=== PATIENT | male | born 1935 | race Caucasian/White ===

== ENCOUNTER 2017-01-28 03:37 | Emergency (ER) | payer MEDICARE, BC ==
[2017-01-28] MEDS ORDERED: OXYCODONE HYDROCHLORIDE 5 MG TAB PO ONE (03:51)
[2017-01-28] MEDS ORDERED: OXYCODONE HYDROCHLORIDE 5 MG TAB ONE (03:57)
[2017-01-28 04:16] VITALS: BP 150/99; PULSE 82; RESP 20; TEMP 97.8; O2SAT 95
== END 2017-01-28 04:38 | disposition home or self-care (01) | DRG 93 ==
LOC: ED 03:37
DX: G89.29 Other chronic pain (principal); M25.512 Pain in left shoulder
CPT/HCPCS: 99282; 99283

== ENCOUNTER 2018-02-16 15:14 | Emergency (ER) | payer MEDICARE, BC ==
[2018-02-16 15:22] VITALS: TEMP 98.7
[2018-02-16 16:11] LABS: BASOPHILS % (AUTO) 0 % (0-3); EOSINOPHILS % (AUTO) 2 % (0-9); HEMATOCRIT 40 % (39-53); HEMOGLOBIN 12.8 gm/dl (13.5-17.7); LYMPHOCYTES % (AUTO) 12.81 % (10-50); MEAN CORPUSCULAR HEMOGLOBIN 30.5 pg (27.0-32.0); MEAN CORPUSCULAR HGB CONC 31.7 gm/dl (32.0-36.0); MEAN CORPUSCULAR VOLUME 96 fL (80-100); MONOCYTES % (AUTO) 7.6 % (0-12); NEUTROPHILS % (AUTO) 76.9 % (37-80)
[2018-02-16] MEDS ORDERED: MORPHINE SULFATE 10 MG/ML SOL IV ONE ×2 (16:14→17:20)
[2018-02-16] MEDS ORDERED: MORPHINE SULFATE 10 MG/ML SOL ONE ×2 (16:17→17:21)
[2018-02-16 16:20] LABS: INR 3.51 (0.86-1.12)
[2018-02-16 16:26] LABS: ALBUMIN 3.4 gm/dl (3.4-5.0); BILIRUBIN,TOTAL 0.6 mg/dl (0.2-1.0); CALCIUM 8.8 mg/dl (8.5-10.1); CARBON DIOXIDE 28.5 mEq/L (21-32); CREATININE 1.27 mg/dl (0.80-1.30); POTASSIUM 4.4 mMol/L (3.5-5.1); TOTAL PROTEIN 6.1 gm/dl (6.4-8.2)
[2018-02-16 16:56] VITALS: RESP 20
[2018-02-16 18:11] VITALS: BP 133/95; PULSE 55; O2SAT 97
== END 2018-02-16 16:08 | disposition short-term general hospital (02) | DRG 538 ==
LOC: ED 15:14
DX: S73.004A Unspecified dislocation of right hip, initial encounter (principal); I48.91 Unspecified atrial fibrillation
CPT/HCPCS: 36415; 72170; 73502; 73562; 80053; 85025; 85610; 96374; 99285; 99291; J2270

== ENCOUNTER 2018-03-30 13:45 | Emergency (ER) | payer MEDICARE, BC ==
[2018-03-30 14:29] VITALS: TEMP 96.8
[2018-03-30] MEDS ORDERED: HYDROMORPHONE 1 MG/ML SYRINGE IV ONE ×2 (15:16→16:23)
[2018-03-30] MEDS ORDERED: HYDROMORPHONE 1 MG/ML SYRINGE ONE ×2 (15:17→16:23)
[2018-03-30] MEDS ORDERED: DIAZEPAM 5MG/ML SOL IV ONE (16:13)
[2018-03-30 16:37] VITALS: BP 143/96; PULSE 75; RESP 16; O2SAT 98
== END 2018-03-30 16:34 | disposition short-term general hospital (02) | DRG 538 ==
LOC: ED 13:45
DX: S73.004A Unspecified dislocation of right hip, initial encounter (principal)
CPT/HCPCS: 70450; 72125; 73502; 96374; 99284; 99285; J1170

== ENCOUNTER 2018-04-03 13:49 | Inpatient (IN) | payer MEDICARE, BC ==
[2018-04-03] MEDS ORDERED: POLYETHYLENE GLYCOL 400 OP PRN (16:58)
[2018-04-03] MEDS ORDERED: FLUTICASONE PROPIONATE NS PRN (16:58)
[2018-04-03] MEDS ORDERED: PROPYLENE GLYCOL OP PRN (16:58)
[2018-04-03] MEDS ORDERED: KETOTIFEN FUMARATE EACHEYE PRN (16:58)
[2018-04-03] MEDS ORDERED: HYPROMELLOSE OP PRN (16:58)
[2018-04-03] MEDS ORDERED: ALBUTEROL HFA 60 PUFF/INHALER INH PRN (16:58)
[2018-04-03] MEDS: FENTANYL 12 MCG PATCH TDM TD SCH (17:56)
[2018-04-03] MEDS: FENTANYL 25 MCG PATCH TDM TD SCH (17:56)
[2018-04-03] MEDS ORDERED: WARFARIN SODIUM 2.5 MG TAB PO ONE (18:00)
[2018-04-03] MEDS: ACETAMINOPHEN 500 MG 500 MG TAB PO PRN (20:44)
[2018-04-03] MEDS: TAMSULOSIN HYDROCHLORIDE 0.4 MG CAP PO SCH (20:44)
[2018-04-03] MEDS: GABAPENTIN 300 MG CAP PO SCH (20:44)
[2018-04-03] MEDS: MINOCYCLINE 100 MG PO SCH (20:45)
[2018-04-03] MEDS: FAMOTIDINE 20 MG TAB PO SCH (20:45)
[2018-04-03] MEDS ORDERED: RANITIDINE HCL 150 MG TAB PO SCH (21:00)
[2018-04-04] MEDS: ACETAMINOPHEN 500 MG 500 MG TAB PO PRN ×3 (03:22→20:33)
[2018-04-04] MEDS: PANTOPRAZOLE SODIUM 40 MG ECT PO SCH (06:50)
[2018-04-04] MEDS: LEVOTHYROXINE SODIUM 50 MCG TAB PO SCH (06:50)
[2018-04-04] MEDS: GABAPENTIN 300 MG CAP PO SCH ×3 (08:34→20:33)
[2018-04-04] MEDS: MINOCYCLINE 100 MG PO SCH ×2 (08:34→20:33)
[2018-04-04] MEDS: METOPROLOL SUCCINATE 50 MG ER TAB PO SCH (08:34)
[2018-04-04] MEDS: FLUTICASONE INH SCH (10:30)
[2018-04-04] MEDS: VILANTEROL INH SCH (10:30)
[2018-04-04] MEDS: BICALUTAMIDE 50 MG PO SCH (10:30)
[2018-04-04] MEDS: [UNRECOGNIZED DRUG - OTHER] INH SCH (10:30)
[2018-04-04] MEDS ORDERED: WARFARIN SODIUM 2.5 MG TAB PO ONE (18:00)
[2018-04-04] MEDS: FAMOTIDINE 20 MG TAB PO SCH (20:33)
[2018-04-04] MEDS: TAMSULOSIN HYDROCHLORIDE 0.4 MG CAP PO SCH (20:33)
[2018-04-05] MEDS: LEVOTHYROXINE SODIUM 50 MCG TAB PO SCH (06:23)
[2018-04-05] MEDS: PANTOPRAZOLE SODIUM 40 MG ECT PO SCH (06:23)
[2018-04-05 07:28] LABS: INR 1.67 (0.86-1.12)
[2018-04-05] MEDS: GABAPENTIN 300 MG CAP PO SCH ×3 (09:00→20:21)
[2018-04-05] MEDS: METOPROLOL SUCCINATE 50 MG ER TAB PO SCH (09:00)
[2018-04-05] MEDS: MINOCYCLINE 100 MG PO SCH ×2 (09:01→20:21)
[2018-04-05] MEDS: [UNRECOGNIZED DRUG - OTHER] INH SCH (09:03)
[2018-04-05] MEDS: VILANTEROL INH SCH (09:03)
[2018-04-05] MEDS: FLUTICASONE INH SCH (09:03)
[2018-04-05] MEDS: BICALUTAMIDE 50 MG PO SCH (09:03)
[2018-04-05] MEDS: ACETAMINOPHEN 500 MG 500 MG TAB PO PRN ×2 (09:14→20:20)
[2018-04-05] MEDS ORDERED: FLUTICASONE PROPIONATE SPR NAS PRN (09:30)
[2018-04-05] MEDS ORDERED: PEG-400/PROPYLENE GLYCOL 1 DROP SOL OP PRN (09:30)
[2018-04-05] MEDS ORDERED: WARFARIN SODIUM 7.5 MG TAB PO SCH (14:00)
[2018-04-05] MEDS ORDERED: KETOTIFEN FUMARATE EACHEYE SCH (14:00)
[2018-04-05] MEDS ORDERED: KETOTIFEN FUMARATE EACHEYE PRN (15:07)
[2018-04-05] MEDS: WARFARIN SODIUM 7.5 MG TAB PO SCH (17:47)
[2018-04-05] MEDS: TAMSULOSIN HYDROCHLORIDE 0.4 MG CAP PO SCH (20:20)
[2018-04-05] MEDS: FAMOTIDINE 20 MG TAB PO SCH (20:21)
[2018-04-05] MEDS: OXYCODONE HYDROCHLORIDE 5 MG TAB PO PRN (22:24)
[2018-04-06] MEDS: PANTOPRAZOLE SODIUM 40 MG ECT PO SCH ×2 (05:46→07:21)
[2018-04-06] MEDS: LEVOTHYROXINE SODIUM 50 MCG TAB PO SCH ×2 (05:46→07:21)
[2018-04-06] MEDS: ACETAMINOPHEN 500 MG 500 MG TAB PO PRN ×3 (06:47→20:53)
[2018-04-06] MEDS: GABAPENTIN 300 MG CAP PO SCH ×4 (06:48→20:50)
[2018-04-06] MEDS: MINOCYCLINE 100 MG PO SCH ×3 (06:48→20:50)
[2018-04-06] MEDS: BICALUTAMIDE 50 MG PO SCH ×2 (06:49→08:15)
[2018-04-06] MEDS: FLUTICASONE INH SCH ×2 (06:50→08:15)
[2018-04-06] MEDS: METOPROLOL SUCCINATE 50 MG ER TAB PO SCH ×2 (06:50→08:17)
[2018-04-06] MEDS: VILANTEROL INH SCH ×2 (06:50→08:15)
[2018-04-06] MEDS: [UNRECOGNIZED DRUG - OTHER] INH SCH ×2 (06:50→08:15)
[2018-04-06] MEDS: FENTANYL 25 MCG PATCH TDM TD SCH ×2 (06:51→07:25)
[2018-04-06] MEDS: FENTANYL 12 MCG PATCH TDM TD SCH ×2 (06:52→07:25)
[2018-04-06] MEDS: OXYCODONE HYDROCHLORIDE 5 MG TAB PO PRN ×2 (14:30→20:55)
[2018-04-06] MEDS ORDERED: WARFARIN SODIUM 5 MG TAB PO SCH (18:00)
[2018-04-06] MEDS: POLYETHYLENE GLYCOL 17 GM/1 TBS PDS PO PRN (18:52)
[2018-04-06] MEDS: TAMSULOSIN HYDROCHLORIDE 0.4 MG CAP PO SCH (20:49)
[2018-04-06] MEDS: FAMOTIDINE 20 MG TAB PO SCH (20:50)
[2018-04-07] MEDS: PANTOPRAZOLE SODIUM 40 MG ECT PO SCH (06:59)
[2018-04-07] MEDS: LEVOTHYROXINE SODIUM 50 MCG TAB PO SCH (06:59)
[2018-04-07] MEDS: FLUTICASONE INH SCH (08:51)
[2018-04-07] MEDS: ACETAMINOPHEN 500 MG 500 MG TAB PO PRN ×3 (08:51→20:39)
[2018-04-07] MEDS: [UNRECOGNIZED DRUG - OTHER] INH SCH (08:51)
[2018-04-07] MEDS: VILANTEROL INH SCH (08:51)
[2018-04-07] MEDS: BICALUTAMIDE 50 MG PO SCH (08:52)
[2018-04-07] MEDS: METOPROLOL SUCCINATE 50 MG ER TAB PO SCH (08:53)
[2018-04-07] MEDS: GABAPENTIN 300 MG CAP PO SCH ×3 (08:53→20:35)
[2018-04-07] MEDS: MINOCYCLINE 100 MG PO SCH ×2 (08:53→20:34)
[2018-04-07] MEDS: WARFARIN SODIUM 7.5 MG TAB PO SCH (17:48)
[2018-04-07] MEDS: FAMOTIDINE 20 MG TAB PO SCH (20:34)
[2018-04-07] MEDS: TAMSULOSIN HYDROCHLORIDE 0.4 MG CAP PO SCH (20:35)
[2018-04-07] MEDS: POLYETHYLENE GLYCOL 17 GM/1 TBS PDS PO PRN (20:45)
[2018-04-08] MEDS: PANTOPRAZOLE SODIUM 40 MG ECT PO SCH (06:57)
[2018-04-08] MEDS: LEVOTHYROXINE SODIUM 50 MCG TAB PO SCH (06:57)
[2018-04-08] MEDS: MINOCYCLINE 100 MG PO SCH ×2 (09:09→20:16)
[2018-04-08] MEDS: BICALUTAMIDE 50 MG PO SCH (09:10)
[2018-04-08] MEDS: ACETAMINOPHEN 500 MG 500 MG TAB PO PRN ×2 (09:10→16:00)
[2018-04-08] MEDS: GABAPENTIN 300 MG CAP PO SCH ×3 (09:11→20:17)
[2018-04-08] MEDS: VILANTEROL INH SCH (09:11)
[2018-04-08] MEDS: FLUTICASONE INH SCH (09:11)
[2018-04-08] MEDS: METOPROLOL SUCCINATE 50 MG ER TAB PO SCH (09:11)
[2018-04-08] MEDS: [UNRECOGNIZED DRUG - OTHER] INH SCH (09:11)
[2018-04-08] MEDS: WARFARIN SODIUM 7.5 MG TAB PO SCH (17:48)
[2018-04-08] MEDS: TAMSULOSIN HYDROCHLORIDE 0.4 MG CAP PO SCH (20:16)
[2018-04-08] MEDS: FAMOTIDINE 20 MG TAB PO SCH (20:17)
[2018-04-09] MEDS: ACETAMINOPHEN 500 MG 500 MG TAB PO PRN ×2 (01:18→10:22)
[2018-04-09] MEDS: LEVOTHYROXINE SODIUM 50 MCG TAB PO SCH (06:54)
[2018-04-09] MEDS: PANTOPRAZOLE SODIUM 40 MG ECT PO SCH (06:54)
[2018-04-09 07:48] LABS: INR 2.43 (0.86-1.12)
[2018-04-09 09:06] VITALS: BP 111/76; PULSE 88; RESP 17; TEMP 97.8; O2SAT 95
[2018-04-09] MEDS: BICALUTAMIDE 50 MG PO SCH (10:15)
[2018-04-09] MEDS: MINOCYCLINE 100 MG PO SCH (10:15)
[2018-04-09] MEDS: FLUTICASONE INH SCH (10:16)
[2018-04-09] MEDS: VILANTEROL INH SCH (10:16)
[2018-04-09] MEDS: METOPROLOL SUCCINATE 50 MG ER TAB PO SCH (10:16)
[2018-04-09] MEDS: [UNRECOGNIZED DRUG - OTHER] INH SCH (10:16)
[2018-04-09] MEDS: GABAPENTIN 300 MG CAP PO SCH (10:17)
[2018-04-09] MEDS: FENTANYL 25 MCG PATCH TDM TD SCH (10:22)
[2018-04-09] MEDS: FENTANYL 12 MCG PATCH TDM TD SCH (10:22)
== END 2018-04-09 13:45 | disposition home or self-care (01) | DRG 565 ==
LOC: ACUTE CARE 16:25
PROVIDERS: ADMIT Family Medicine; ATTEND Family Medicine
PROC: F01K5YZ Range of Motion and Joint Integrity Assessment of Musculoskeletal System - Upper Back / Upper Extremity using Other Equipment (ICD-10-PCS; principal; 2018-04-04)
PROC: F01ZBZZ Bed Mobility Assessment (ICD-10-PCS; 2018-04-05)
DX: Z96.641 Presence of right artificial hip joint (principal); S73.004A Unspecified dislocation of right hip, initial encounter; M16.11 Unilateral primary osteoarthritis, right hip
CPT/HCPCS: 36415; 51798; 85610; A9270-GY

== ENCOUNTER 2018-06-15 08:28 | Day surgery (SDC) | payer MEDICARE, BC ==
[~2018-06-15 08:28] MED LIST: PROPOFOL 500 MG/50 ML EMU IV ONE
[2018-06-15 08:47] VITALS: TEMP 96.8
[2018-06-15] MEDS ORDERED: PROPOFOL 10 MG/ML 200 MG/20 ML EMU IV ONE (10:18)
[2018-06-15 12:07] VITALS: BP 119/81; PULSE 74; RESP 20; O2SAT 98
== END 2018-06-15 12:44 | disposition home or self-care (01) | DRG 382 ==
LOC: SURG 08:28
PROVIDERS: ATTEND Internal Medicine Gastroenterology
DX: K22.70 Barrett's esophagus without dysplasia (principal); D64.9 Anemia, unspecified; Z80.0 Family history of malignant neoplasm of digestive organs; Z86.010 Personal history of colon polyps; K64.8 Other hemorrhoids; K44.9 Diaphragmatic hernia without obstruction or gangrene; L53.8 Other specified erythematous conditions; Q40.2 Other specified congenital malformations of stomach; D12.2 Benign neoplasm of ascending colon; D12.0 Benign neoplasm of cecum; D12.3 Benign neoplasm of transverse colon
CPT/HCPCS: J2704

== ENCOUNTER 2019-02-23 13:22 | Day surgery (SDC) | payer MEDICARE, BC ==
[2019-02-23] MEDS ORDERED: DEXAMETHASONE SOD PHOS PF 10 MG/ML SOL IJ ONE (14:15)
[2019-02-23] MEDS ORDERED: BUPIVACAINE HCL 0.25% MPF 30 ML SOL INFIL ONE (14:15)
[2019-02-23 14:42] VITALS: RESP 16
[2019-02-23 15:03] VITALS: PULSE 88; TEMP 98.2; O2SAT 96
[2019-02-23 15:06] VITALS: BP 115/85
== END 2019-02-23 15:51 | disposition home or self-care (01) | DRG 552 ==
LOC: SURG 13:22
PROVIDERS: ATTEND Nurse Anesthetist, Certified Registered
DX: M48.062 Spinal stenosis, lumbar region with neurogenic claudication (principal)
CPT/HCPCS: J1100